=== PATIENT | female | born 1990 | race Caucasian/White ===

== ENCOUNTER → 2017-10-17 | Outpatient (CLI) | payer BC ==
--- NOTE | 2017-10-17 17:12 | Diagnostic Imaging Report ---
Indication: Cough Technique: 5 views of the maxillofacial sinuses Comparison: none Findings: No definite sinus opacification or air-fluid levels. Nasal septum is midline. No osseous abnormality Impression: No definite sinus abnormality. Note, however, limited sensitivity of plain radiographs for such. Consider CT if there is high clinical suspicion
--- NOTE | 2017-10-17 17:13 | Diagnostic Imaging Report ---
Indication: Cough Technique: 2 views of the chest Comparison: None Findings: Lungs and pleural spaces are clear. The heart size is normal. The bones are unremarkable. Impression: Negative
== END | disposition home or self-care (01) ==
LOC: RAD 13:21
DX: R05 Cough (principal); Z77.120 Contact with and (suspected) exposure to mold (toxic)
CPT/HCPCS: 70220; 71046